=== PATIENT | male | born 1960 | race African-American/Black ===

== ENCOUNTER 2024-07-19 11:12 | Emergency (ER) | payer MEDICARE ==
[~2024-07-19] VITALS: Ht 175.3 cm; Wt 63.0 kg
[2024-07-19 11:16] VITALS: TEMP 98.6; O2SAT 98
[2024-07-19] MEDS ORDERED: VANCOMYCIN 1G PREMIX 200 ML IV ONE (11:30)
[2024-07-19] MEDS: SODIUM CHLORIDE 0.9% 1000ML BAG (SEPSIS BOLUS) IV ONE (11:40)
[2024-07-19 12:05] LABS: BASOPHILS % 0.7 % (0.0-2.0); DIFFERENTIAL COMMENT 0; EOSINOPHILS % 4.1 % (0.0-5.0); HEMATOCRIT. 37.6 % (42.0-52.0); HEMOGLOBIN. 11.9 g/dL (14.0-18.0); LYMPHOCYTES % 12.4 % (20.0-50.0); MEAN CORPUSCULAR HEMOGLOBIN 29.3 pg (28.0-32.0); MEAN CORPUSCULAR HGB CONC 31.6 g/dL (31.0-37.0); MEAN CORPUSCULAR VOLUME 92.7 fL (80.0-94.0); MEAN PLATELET VOLUME 7.9 fl (7.4-10.4); MONOCYTES % 9.4 % (2.0-8.0); NEUTROPHILS % 73.4 % (40.0-76.0); PLATELET 439 x1000/uL (130-400); RED BLOOD CELL COUNT 4.05 mill/uL (4.7-6.1); RED CELL DISTRIBUTION WIDTH 21.8 % (11.6-14.6); WHITE BLOOD COUNT 7.4 x1000/uL (4.5-11.0)
[2024-07-19 12:19] LABS: CHLORIDE 101 mEq/L (98-107); POTASSIUM 5.4 mEq/L (3.5-5.1); SODIUM 136 mEq/L (136-145)
[2024-07-19 12:20] LABS: CALCIUM 9.6 mg/dL (8.7-10.4); CARBON DIOXIDE 30 mEq/L (21-32)
[2024-07-19] MEDS: MEROPENEM 1G/100ML 100 ML IV NR (12:20)
[2024-07-19 12:25] LABS: CREATININE 0.6 mg/dL (0.6-1.3); GLUCOSE 88 mg/dL (70-105); TROPONIN I HIGH SENSITIVITY 27 ng/L (3.0-53)
[2024-07-19 12:27] LABS: UREA NITROGEN BLOOD 10 mg/dL (9-23)
[2024-07-19] MEDS ORDERED: MEROPENEM 1G/100ML 100 ML IV SCH ×2 (14:00→20:00)
[2024-07-19] MEDS: VANCOMYCIN 1G PREMIX 200 ML IV NR (15:10)
[2024-07-19 16:08] LABS: CLARITY URINE CLEAR (CLEAR); COLOR URINE YELLOW (YELLOW); GLUCOSE URINE 3+ (NEGATIVE); KETONES URINE NEGATIVE (NEGATIVE); LEUKOCYTE ESTERASE URINE NEGATIVE (NEGATIVE); NITRITE URINE NEGATIVE (NEGATIVE); OCCULT BLOOD URINE NEGATIVE (NEGATIVE); PH URINE 7.5 (4.5-8.0); PROTEIN URINE TRACE (NEGATIVE); SPECIFIC GRAVITY URINE 1.019 (1.005-1.030); UROBILINOGEN URINE 0.2 E.U./dL (0.2-1.0)
[2024-07-19 16:35] VITALS: BP 128/7; PULSE 75; RESP 15; O2SAT 97
[2024-07-19 16:41] LABS: BACTERIA URINE NONE SEEN; RBC URINE NONE SEEN /hpf (0-2); SQUAMOUS EPITHELIAL CELL URINE RARE /lpf (RARE/1+); WBC URINE NONE SEEN /hpf (0-2)
[2024-07-19] MEDS ORDERED: MAGNESIUM/ALUMINUM HYDROXIDE/SIMETHICONE 30ML UDC PO PRN (17:45)
[2024-07-19] MEDS ORDERED: IPRATROPIUM/ALBUTEROL 0.5-3(2.5)MG/3ML NEB NEB PRN (17:45)
[2024-07-19] MEDS ORDERED: DOCUSATE SODIUM 100MG CAPSULE PO PRN (17:45)
[2024-07-19] MEDS ORDERED: ONDANSETRON HCL 4MG/2ML INJ IV PRN (17:45)
[2024-07-19] MEDS ORDERED: ZOLPIDEM TARTRATE 5MG TABLET PO PRN (17:45)
[2024-07-19] MEDS ORDERED: KETOROLAC 15MG/ML VIAL IV PRN (17:45)
[2024-07-19] MEDS ORDERED: LACTATED RINGERS 1,000 ML IV SCH (17:45)
[2024-07-19] MEDS ORDERED: GUAIFENESIN 200MG/10ML SUGAR FREE UDC PO PRN (17:45)
[2024-07-19] MEDS ORDERED: NITROGLYCERIN 0.4MG TABLET SL SL PRN (17:45)
[2024-07-19] MEDS ORDERED: CLONIDINE 0.1MG TABLET PO PRN (17:45)
[2024-07-19] MEDS ORDERED: ACETAMINOPHEN 325MG TABLET PO PRN ×2 (17:45)
[2024-07-19] MEDS ORDERED: SODIUM ZIRCONIUM CYCLOSILICATE 10GM/PACKET PO NR (18:00)
[2024-07-19 19:54] LABS: IRON 51 ug/dL (65-175)
[2024-07-19 19:55] LABS: TRIGLYCERIDE 142 mg/dL (0-150)
[2024-07-19 19:56] LABS: LDL CHOLESTEROL 91 mg/dL (5-100)
[2024-07-19 19:57] LABS: CHOLESTEROL 156 mg/dL (<200); HDL CHOLESTEROL 53 mg/dL (>55); TOTAL IRON BINDING CAPACITY 148 ug/dl (250-425)
[2024-07-19 20:00] LABS: FOLIC ACID (FOLATE) SERUM 16.17 ng/mL (>5.38); VITAMIN B12 SERUM 1213 pg/mL (211-911)
[2024-07-19 20:02] LABS: THYROID STIMULATING HORMONE 2.36 uIU/mL (0.55-4.78)
[2024-07-19 20:03] LABS: T4 FREE 1.26 ng/dL (0.89-1.76)
[2024-07-19] MEDS ORDERED: ASCORBIC ACID 500 MG TABLET PO SCH (21:00)
[2024-07-19] MEDS ORDERED: FAMOTIDINE 20MG TABLET PO SCH (21:00)
[2024-07-19] MEDS ORDERED: ENOXAPARIN 40MG/0.4ML SYR SUBCUT SCH (21:00)
[2024-07-20] MEDS ORDERED: ASPIRIN 81MG EC TABLET PO SCH (09:00)
[2024-07-20] MEDS ORDERED: ZINC SULFATE 220 MG ( 50 ) CAPSULE PO SCH (09:00)
== END 2024-07-19 18:25 | disposition left against medical advice (07) ==
LOC: ER 11:12 → EDBEDREQ 14:12 → ER 18:25 → CANBEDREQ 21:28
DX: E86.0 Dehydration (principal); N28.9 Disorder of kidney and ureter, unspecified; Z88.0 Allergy status to penicillin; Z91.048 Other nonmedicinal substance allergy status; Z98.890 Other specified postprocedural states; Z85.9 Personal history of malignant neoplasm, unspecified
CPT/HCPCS: 99285; 96365; 96366; 71045; 96361; 80061; 80048; 81003; 82607; 82746; 83036; 84439; 83540; 83550; 83605; 84443; 85025; 87040; 87086; 84484; 36415; 84145; 93005; 96368; J2185; J3370; J7030